=== PATIENT | female | born 1990 | race African-American/Black ===

== ENCOUNTER 2023-04-26 14:12 | Observation (INO) | payer OTHER ==
[~2023-04-26] VITALS: Ht 157.5 cm; Wt 68.2 kg
[2023-04-26 17:31] LABS: APPEARANCE, URINE CLEAR (CLEAR); BACTERIA, URINE AUTO NEGATIVE (NEGATIVE); BILIRUBIN, URINE AUTO NEGATIVE (NEGATIVE); BLOOD, URINE BLOOD 2+ (NEGATIVE); COLOR, URINE STRAW (YELLOW); GLUCOSE, URINE (UA) AUTO NEGATIVE (NEGATIVE); KETONE, URINE AUTO NEGATIVE (NEGATIVE); LEUKOCYTE ESTERASE, URINE AUTO NEGATIVE (NEGATIVE); MUCUS, URINE SMALL (NEGATIVE); NITRITE, URINE AUTO NEGATIVE (NEGATIVE); PROTEIN, URINE AUTO NEGATIVE (NEGATIVE); RBC, URINE AUTO 14 /HPF (0-3); SPECIFIC GRAVITY URINE AUTO 1.009 (1.002-1.035); SQUAMOUS EPITHELIAL CELL UR AU 0 /HPF (0-6); UROBILINOGEN, URINE AUTO 0.2 mg/dL (0.0-2.0); WBC, URINE AUTO 2 /HPF (0-3)
[2023-04-26 18:38] LABS: BASO # 0.1 10^3/uL (0.0-0.2); BASO % 0.9 % (0.0-1.0); EOS # 0.1 10^3/uL (0.0-0.5); EOS % 0.9 % (0.0-3.0); HEMATOCRIT 36.1 % (36.0-47.0); HEMOGLOBIN 11.9 g/dl (12.0-15.5); LYMPH # 2.4 10^3/uL (1.5-5.0); LYMPH % 37.4 % (24.0-44.0); MEAN CORPUSCULAR HEMOGLOBIN 26.9 pg (27.0-33.0); MEAN CORPUSCULAR VOLUME 81.5 fl (80.0-96.0); MONO # 0.4 10^3/uL (0.0-0.8); MONO % 6.6 % (2.0-8.0); NEUTROPHILS # 3.5 10^3/uL (1.5-8.5); PLATELET COUNT, AUTOMATED 274 10^3/uL (150-450); RED BLOOD COUNT 4.43 10^6/uL (4.00-5.40); WHITE BLOOD COUNT 6.5 10^3/uL (4.0-10.0)
[2023-04-26] MEDS ORDERED: NS 1,000 ML IV ONE (21:00)
[2023-04-26] MEDS: LR 1,000 ML IV SCH (22:40)
[2023-04-26] MEDS ORDERED: UNRESOLVED CLARIFICATION ENTRY XX STA (22:48)
[2023-04-26] MEDS ORDERED: FOLI0.4T5 PO (22:57)
[2023-04-26] MEDS ORDERED: HOME MED LIST COMPLETE! XX SCH (23:00)
[2023-04-27] VITALS (9 sets, daily range): BP systolic 103–123; BP diastolic 71–81; TEMP 97.3–98.9; O2SAT 97–100
[2023-04-27 02:01] LABS: HEMATOCRIT 30.7 % (36.0-47.0); HEMOGLOBIN 10.1 g/dl (12.0-15.5); MEAN CORPUSCULAR HEMOGLOBIN 26.7 pg (27.0-33.0); MEAN CORPUSCULAR HGB CONC 32.9 g/dl (32.0-36.5); MEAN CORPUSCULAR VOLUME 81.2 fl (80.0-96.0); PLATELET COUNT, AUTOMATED 211 10^3/uL (150-450); RED BLOOD COUNT 3.78 10^6/uL (4.00-5.40); WHITE BLOOD COUNT 5.7 10^3/uL (4.0-10.0)
[2023-04-27 06:28] LABS: HEMATOCRIT 30.3 % (36.0-47.0); MEAN CORPUSCULAR HEMOGLOBIN 26.7 pg (27.0-33.0); PLATELET COUNT, AUTOMATED 216 10^3/uL (150-450); RED BLOOD COUNT 3.74 10^6/uL (4.00-5.40); WHITE BLOOD COUNT 4.7 10^3/uL (4.0-10.0)
[2023-04-27] MEDS: LR 1,000 ML IV SCH (08:58)
[2023-04-27] MEDS ORDERED: KETOROLAC 60MG 2ML VIAL As Ordered ONE (09:47)
[2023-04-27] MEDS ORDERED: ONDANSETRON 4MG 2ML VIAL As Ordered ONE (09:47)
[2023-04-27] MEDS ORDERED: SUGAMMADEX SODIUM 500 MG/5 ML VIAL (BRIDION) As Ordered ONE (09:47)
[2023-04-27] MEDS ORDERED: ROCURONIUM BROMIDE 50MG/5ML VIAL As Ordered ONE (09:47)
[2023-04-27] MEDS ORDERED: propofoL 200 MG/20 ML VIAL As Ordered ONE (09:47)
[2023-04-27] MEDS ORDERED: LIDOCAINE 2% 100MG/5ML SDV (FOR ANES.) As Ordered ONE (09:47)
[2023-04-27] MEDS ORDERED: MIDAZOLAM INJ 2MG/2ML VIAL As Ordered ONE (09:54)
[2023-04-27] MEDS ORDERED: fentaNYL 100 MCG/2 ML INJECTION As Ordered ONE (09:54)
[2023-04-27] MEDS ORDERED: ACETAMINOPHEN 1000MG 100ML IV BAG As Ordered ONE (10:54)
[2023-04-27] MEDS ORDERED: KETOROLAC 30 MG/ML 1ML VIAL IV ONE (12:30)
[2023-04-27] MEDS ORDERED: oxyCODONE 5MG TAB PO ONE (12:30)
== END 2023-04-27 17:24 | disposition home or self-care (01) ==
LOC: M ED 14:12 → M ED INP 14:13 → M PED 04-27 00:15
PROVIDERS: ADMIT Obstetrics & Gynecology; ATTEND Obstetrics & Gynecology
DX: O00.102 Left tubal pregnancy without intrauterine pregnancy (principal)
CPT/HCPCS: 36415; 59151; 76801; 76817; 80047; 81001; 84702; 85025; 85027; 86850; 86900; 86901; 87086; 87635; 88305; 93976; 96361; 96374; 99284; J0131; J1100; J1885; J2250; J2405; J3010; S0020

== ENCOUNTER 2024-01-08 20:50 | Outpatient (CLI) | payer OTHER ==
[~2024-01-08] VITALS: Ht 157.5 cm; Wt 80.3 kg
[~2024-01-08 20:50] MED LIST: FOLI0.4T5 PO
[2024-01-08 21:07] VITALS: BP 119/75
[2024-01-08] MEDS: ACETAMINOPHEN 500 MG TAB PO ONE (22:26)
[2024-01-08] MEDS: CYCLOBENZAPRINE 5MG TABLET PO ONE (22:50)
== END 2024-01-08 22:55 | disposition home or self-care (01) ==
LOC: M LDO 20:50
PROVIDERS: ATTEND Obstetrics & Gynecology
DX: O26.893 Other specified pregnancy related conditions, third trimester (principal); R10.2 Pelvic and perineal pain; Z3A.36 36 weeks gestation of pregnancy; O34.219 Maternal care for unspecified type scar from previous cesarean delivery
CPT/HCPCS: 59025; G0463

== ENCOUNTER 2024-01-25 06:25 | Inpatient (IN) | payer OTHER ==
[2024-01-25] VITALS (9 sets, daily range): BP systolic 104–119; BP diastolic 57–77; TEMP 96.8; O2SAT 98–100
[~2024-01-25] VITALS: Ht 157.5 cm; Wt 80.5 kg
[~2024-01-25 06:25] MED LIST changes: +PNV,1TAB3 PO
[2024-01-25 07:15] LABS: HEMATOCRIT 40.3 % (36.0-47.0); HEMOGLOBIN 13.5 g/dl (12.0-15.5); MEAN CORPUSCULAR HEMOGLOBIN 27.3 pg (27.0-33.0); MEAN CORPUSCULAR HGB CONC 33.5 g/dl (32.0-36.5); MEAN CORPUSCULAR VOLUME 81.6 fl (80.0-96.0); PLATELET COUNT, AUTOMATED 193 10^3/uL (150-450); RED BLOOD COUNT 4.94 10^6/uL (4.00-5.40); WHITE BLOOD COUNT 10.2 10^3/uL (4.0-10.0)
[2024-01-25] MEDS ORDERED: LIDOCAINE 1% MDV 20ML VIAL INFIL PRN (07:30)
[2024-01-25] MEDS ORDERED: OXYTOCIN DRIP 30 UNITS in IV 1 EA IV PRN ×3 (07:30)
[2024-01-25] MEDS ORDERED: METHYLERGONOVINE MALEATE 0.2MG/ML 1ML VIAL IM PRN (07:30)
[2024-01-25] MEDS ORDERED: TRANEXAMIC ACID INJection 1,000 MG in NS 100 ML IV PRN (07:30)
[2024-01-25] MEDS ORDERED: CARBOPROST TROMETHAMINE 250 MCG/ML AMP IM PRN (07:30)
[2024-01-25] MEDS ORDERED: OXYTOCIN INJ 10UNITS/ML 1ML VIAL IM PRN (07:30)
[2024-01-25] MEDS: LR 1,000 ML IV SCH (07:43)
[2024-01-25] MEDS: ceFAZolin SOD 2 GM in IV 1 EA IV ONE (07:43)
[2024-01-25] MEDS: LACTATED RINGER'S 1000 ML IV STA (07:43)
[2024-01-25] MEDS: BICITRA 30ML SOLN UDC PO ONE (07:43)
[2024-01-25] MEDS ORDERED: KETOROLAC 60MG 2ML VIAL As Ordered ONE (08:33)
[2024-01-25] MEDS ORDERED: ePHEDrine SULFATE 25 MG/5 ML(5MG/ML) SYRINGE As Ordered ONE (08:33)
[2024-01-25] MEDS ORDERED: PHENYLephrine 500MCG 5ML (100MCG/ML) SYRINGE As Ordered ONE (08:33)
[2024-01-25] MEDS ORDERED: METOCLOPRAMIDE INJ 10MG/2ML VIAL As Ordered ONE (08:33)
[2024-01-25] MEDS ORDERED: ACETAMINOPHEN 1000MG 100ML IV BAG As Ordered ONE (08:33)
[2024-01-25] MEDS ORDERED: MORPHINE PRES-FREE INJ 10 MG/10 ML VIAL As Ordered ONE (08:33)
[2024-01-25] MEDS ORDERED: OXYTOCIN 30UNITS IN 0.9% NaCl 500ML IV BAG As Ordered ONE (08:33)
[2024-01-25] MEDS: DOCUSATE SODIUM 100MG CAPSULE PO SCH (09:00)
[2024-01-25] MEDS: PRENATAL VITAMINS CHEWABLE TABLET PO SCH (09:00)
[2024-01-25] MEDS ORDERED: ACETAMINOPHEN 500 MG TAB PO PRN (09:35)
[2024-01-25] MEDS ORDERED: oxyCODONE 5MG TAB PO PRN ×3 (09:35→09:50)
[2024-01-25] MEDS ORDERED: SIMETHICONE 80MG CHEW TAB PO PRN (09:35)
[2024-01-25] MEDS ORDERED: MOM 30ML SUSPENSION UDC PO PRN (09:35)
[2024-01-25] MEDS ORDERED: ONDANSETRON 4MG 2ML VIAL IV PRN ×2 (09:35→09:50)
[2024-01-25] MEDS ORDERED: RHOGAM 300MCG (1500IU) INJ IM SCH (09:35)
[2024-01-25] MEDS ORDERED: fentaNYL 100 MCG/2 ML INJECTION IV PRN (09:50)
[2024-01-25] MEDS ORDERED: METOCLOPRAMIDE INJ 10MG/2ML VIAL IV PRN (09:50)
[2024-01-25] MEDS: SLF 3 ML SYR IV SCH (09:50)
[2024-01-25] MEDS ORDERED: NALOXONE INJ 0.4MG/1ML VIAL IV PRN ×2 (09:50)
[2024-01-25] MEDS ORDERED: **NOTE PATIENT COMMENT** MISC XX SCH (09:50)
[2024-01-25] MEDS ORDERED: diphenhydrAMINE 50MG/ML VIAL IV PRN (09:50)
[2024-01-25] MEDS: KETOROLAC 30 MG/ML 1ML VIAL IV SCH (15:15)
[2024-01-26 02:00] VITALS: BP 103/62; O2SAT 100
[2024-01-26 05:29] VITALS: BP 111/66; O2SAT 98
[2024-01-26 07:36] LABS: HEMATOCRIT 29.5 % (36.0-47.0); MEAN CORPUSCULAR HEMOGLOBIN 27.4 pg (27.0-33.0); MEAN CORPUSCULAR HGB CONC 33.2 g/dl (32.0-36.5); MEAN CORPUSCULAR VOLUME 82.4 fl (80.0-96.0); PLATELET COUNT, AUTOMATED 143 10^3/uL (150-450); RED BLOOD COUNT 3.58 10^6/uL (4.00-5.40); WHITE BLOOD COUNT 10.2 10^3/uL (4.0-10.0)
[2024-01-26 07:50] LABS: HEMOGLOBIN 9.8 g/dl (12.0-15.5)
[2024-01-26 10:00] VITALS: BP 138/86; O2SAT 100
[2024-01-26] MEDS: IBUPROFEN 800 MG TAB PO SCH (10:27)
[2024-01-26 14:00] VITALS: BP 116/67; O2SAT 100
[2024-01-26 18:00] VITALS: BP 108/68; O2SAT 100
[2024-01-26 22:00] VITALS: BP 125/71; O2SAT 100
[2024-01-27 02:00] VITALS: BP 149/88; O2SAT 100
[2024-01-27 06:00] VITALS: BP 127/66; O2SAT 99
[2024-01-27] MEDS: MEASLES,MUMPS,RUBELLA VACCINE INJ (MMR-II) SC.IMMUN ONE (06:49)
== END 2024-01-27 14:29 | disposition home or self-care (01) | DRG 773 ==
LOC: M LDI 06:25 → M OBS 11:15
PROVIDERS: ADMIT Obstetrics & Gynecology; ATTEND Obstetrics & Gynecology
PROC: 10D00Z1 Extraction of Products of Conception, Low, Open Approach (ICD-10-PCS; principal; 2024-01-25 07:30)
DX: O34.211 Maternal care for low transverse scar from previous cesarean delivery (principal); Z37.0 Single live birth; Z3A.39 39 weeks gestation of pregnancy